=== PATIENT | male | born 1995 | race Caucasian/White ===

== ENCOUNTER 2022-03-05 14:54 | Emergency (ER) | payer OTHER, BC, SELFPAY ==
[2022-03-05 14:55] VITALS: BP 134/77; PULSE 68; RESP 14; TEMP 36.1; BMI 29.7
--- NOTE | 2022-03-05 15:25 | EX.ED.UPPERE ---
HPI History of Present Illness HPI Narrative: Patient presents with left wrist injury that occurred 1 week ago. Patient states he was using his hand to try to open a window out on a machine at work. Patient states he felt something pop at the time. Patient states he has been using it, thinking it was just a bruise and it would get better. Patient states it has not gotten any better over the last week. Patient describes his pain as aching. Patient states it is worse in the morning. Patient states it is worse whenever he pushes on the area. Patient states it is also worse whenever he makes a fist. Patient states ibuprofen has been helping. Patient denies any paresthesias or weakness. Patient denies any other injuries. Chief Complaint: Upper Extremity Injury Informant: patient Onset/Context/Timing Onset: Weeks (1) Context: Sudden Onset Timing: Continuous Quality of Pain: Aching Location: Volar aspect left wrist Worsened by: Pressure, making a fist Relieved by: Ibuprofen Associated Symptoms Associated Symptoms: Negative for Parasthesia, Weakness and Loss of Funtion PFSH PFSH Medical History no medical history no medical history Home Medications oxycodone-acetaminophen 1 - 2 tab PO Q4H PRN PRN #20 tab 12/03/13 [Rx Last Taken Unknown] Allergy/AdvReac Type Severity Reaction Status Date / Time No Known Allergies Allergy Verified 03/05/22 14:55 Surgical History History of open reduction and internal fixation (ORIF) procedure Social History Smoking Status: Never smoker ROS ROS ED Constitutional Constitutional ED: Denies chills or fever(s) Eyes Eyes: Denies blurry vision or change in vision ENT ENT ED: Reports rhinorrhea; Denies sore throat Cardiovascular Cardiovascular: Denies chest pain or palpitations Respiratory/Chest Respiratory/Chest: Denies cough or dyspnea Gastrointestinal Gastrointestinal: Denies nausea or vomiting Genitourinary Genitourinary ED: Denies dysuria or hematuria Musculoskeletal Musculoskeletal: Denies back pain or neck pain Integumentary Denies abscess or rash Neurologic Neurologic: Denies headache(s) or weakness Allergic/Immunologic Allergic/Immunologic ED: Denies mouth swelling or urticaria EXAM Physical Exam Const Vital Signs: 03/05/22 14:55 Temperature 97 F L Temperature Source Temporal Pulse Rate 68 Respiratory Rate 14 Blood Pressure 134/77 H Blood Pressure Mean 96 Positive well nourished and well developed General Appearance ED: well developed and NAD HEENT Reports moist mucous membranes Neck full ROM and supple Extremity Extremity Narrative: There is tenderness over the volar aspect of the left wrist and thenar eminence. There is no edema or ecchymosis. There is no bony crepitance or step-off. Range of motion was slightly limited in all motions of the left wrist secondary to pain. There is no tenderness over the anatomic snuffbox. Sensation was intact to light touch in the radial, median, and ulnar areas. Radial pulses are equal bilaterally. Strength is 5/5 in the radial, median, and ulnar areas. Neuro oriented x3, CN's II-XII intact bilaterally, moves all extremities, no focal motor deficits and no sensory deficits noted Sensorium / Orientation: alert Motor Exam: strength 5/5 throughout Psych mental status grossly normal Skin Lesions: no lesions Rashes: no rashes MDM MDM MDM Narrative Medical decision making narrative: X-rays of the left wrist were obtained. There are 3 views. On my interpretation, there is no acute fracture. There is no dislocation. There is no soft tissue swelling. Radiologist also interpreted the x-rays and agrees. Patient was advised of his findings. Patient was given a Velcro wrist splint. Patient was instructed to ice and elevate the left wrist. Patient was instructed to follow-up with his primary care physician or the now clinic in 5 to 7 days. Patient understood and was agreeable with the plan. All questions were answered. Discharge Plan Triage Chief Complaint: Upper Extremity Injury ED Provider: Marbin Clark Dx/Rx/DC Orders Clinical Impression: Contusion of left wrist, initial encounter Instructions: ED Contusion, Upper Extremity Prescriptions: No Action oxycodone-acetaminophen 1 TABLET tablet 1 - 2 tab PO Q4H PRN PRN (Reason: Pain) Qty: 20 RF: 0 Primary Care Provider: Mac Roy Referrals: Mac Roy MD [Primary Care Provider] - 5-7 Days Clinic[facility] [NON-STAFF] - 5-7 Days Disposition Disposition: Home, Self Care
--- NOTE | 2022-03-05 16:00 | RAD_ITS ---
EXAM: XR LEFT WRIST COMPLETE, 3 OR MORE VIEWS CLINICAL INDICATION: Injury/Pain TECHNIQUE: Frontal, lateral and oblique views of the left wrist. This report was created using Page[employer] report generation technology. COMPARISON: None. FINDINGS: BONES/JOINTS: Unremarkable. No acute fracture. No subluxation. Normal alignment. Preservation of the joint space. No sclerotic or destructive changes observed. SOFT TISSUES: Unremarkable. No soft tissue swelling or gas. No radiopaque foreign body. RAD/Wrist min 3 Views IMPRESSION: No acute abnormality. Electronically Signed: Timothy Kenny MD at 16:33 EDT ,
== END 2022-03-05 17:22 | disposition home or self-care (01) ==
PROVIDERS: Emergency Provider Emergency Medicine; PCP Family Medicine; Visit Provider Emergency Medicine
DX: S60.212A Contusion of left wrist, initial encounter (principal); X58.XXXA Exposure to other specified factors, initial encounter
CPT/HCPCS: 73110; 99283

== ENCOUNTER 2023-09-23 14:24 | Observation (INO) | payer BC, OTHER, SELFPAY ==
[2023-09-23] VITALS (11 sets, daily range): BP systolic 121–153; BP diastolic 77–99; PULSE 56–72; RESP 16–18; TEMP 36.3–37; O2SAT 95–100; BMI 30.9; BMI 31.4
--- NOTE | 2023-09-23 15:39 | CT_ITS ---
STUDY: CT ABDOMEN AND PELVIS WITH CONTRAST REASON FOR EXAM: Male, 28 years old. RLQ pain RADIATION DOSAGE (If Supplied By Facility): CTDIvol = ( 16.33 ) mGy, DLP = ( 1049.80 ) mGycm TECHNIQUE: Transaxial images were obtained from the dome of the diaphragm to the symphysis pubis without oral contrast. IV 100mL Isovue-300 was administered. Sagittal and coronal images were reconstructed. Individualized dose optimization techniques were used for this CT. COMPARISON: None. FINDINGS: The visualized lung bases are unremarkable. The visualized portions of the heart are within normal limits. Fatty liver. Normal gallbladder and extrahepatic biliary system. Normal spleen. Normal pancreas. Normal bilateral adrenal glands. Normal right kidney. Normal left kidney. Normal visualized stomach. Normal small intestine. There is a focal mesenteric inflammation which is between the mid sigmoid colon and the tip of the appendix. This may be related to focal diverticulitis or appendicitis. Normal abdominal aorta. Normal inferior vena cava. Normal retroperitoneum. Normal urinary bladder. Small fatty umbilical hernia. Normal osseous structures. CT/Abdomen/Pelvis W IV Cont ONLY IMPRESSION: There is a focal mesenteric inflammation which is between the mid sigmoid colon and the tip of the appendix. This may be related to focal diverticulitis or appendicitis. Small fatty umbilical hernia. Fatty liver. Electronically Signed: Derrek Adkins DO at 16:38 EST ,
--- NOTE | 2023-09-23 15:40 | ED.VIS.GI ---
HPI <WALT Ram - Last Filed: 09/23/23 18:47> HPI - GI History of Present Illness Chief Complaint: Abd Pain Narrative Narrative: Patient presenting today due to right lower quadrant abdominal pain that he has had constantly since late Friday night. He reports that his symptoms worsened on Friday. He reports that he has a constant dull cramping and aching sensation. He reports that the pain radiates to his umbilicus. Today he noticed around 6 episodes of loose stool. He went to urgent care prior to coming here and they encouraged him to come to the ED to rule out appendicitis. He denies any history of abdominal surgeries. He denies fever, chills, nausea, vomiting, melena/medic easier, and urinary symptoms. He does not have any history of kidney stones. He denies a PMH of any chronic health conditions. PFSH <WALT Ram - Last Filed: 09/23/23 18:47> PFSH Home Medications oxycodone-acetaminophen 5 mg-325 mg tablet 1 - 2 tab PO Q6H PRN pain 3 days #14 tabs 09/23/23 [Rx Last Taken Unknown] Allergy/AdvReac Type Severity Reaction Status Date / Time No Known Allergies Allergy Verified 09/23/23 14:25 Surgical History History of open reduction and internal fixation (ORIF) procedure Social History Smoking Status: Former smoker ROS <WALT Ram - Last Filed: 09/23/23 18:47> ROS ED Constitutional Constitutional ED: Denies chills or fever(s) Cardiovascular Cardiovascular: Denies chest pain Respiratory/Chest Respiratory/Chest: Denies cough or dyspnea Gastrointestinal Gastrointestinal: Reports abdominal pain and diarrhea; Denies constipation, nausea or vomiting Genitourinary Genitourinary ED: Denies dysuria, hematuria or urinary frequency Musculoskeletal Musculoskeletal: Denies arthralgias or myalgias Integumentary Denies rash Neurologic Neurologic: Denies weakness EXAM <WALT Ram - Last Filed: 09/23/23 18:47> Physical Exam Const Vital Signs: 09/23/23 14:26 09/23/23 17:28 09/23/23 17:56 Temperature 97.8 F 97.7 F L 97.7 F L Temperature Source Temporal Oral Pulse Rate 68 72 72 Respiratory Rate 18 18 18 Blood Pressure 134/89 H 152/99 H 152/99 H Blood Pressure Mean 104 116 116 Blood Pressure Source Monitor Blood Pressure Position Semi-Fowlers Blood Pressure Location Right Arm Pulse Ox 100 100 100 Oxygen Delivery Method Room Air Room Air Positive well nourished, well developed and no apparent distress General Appearance ED: well developed HEENT Reports normocephalic and head/scalp atraumatic Mouth ED: Yes moist mucous membranes normal Eyes PERRL and EOMs intact bilaterally Neck full ROM and supple Chest Wall inspection of chest normal Resp normal respiratory effort and clear to auscultation bilaterally Cardio regular rate and regular rhythm GI soft to palpation, non-distended and no masses GI Narrative: Slight tenderness to McBurney's point without any rigidity, guarding, or peritoneal signs. Negative Rovsing sign. Back/Spine normal ROM and normal to inspection Extremity normal to inspection and full ROM Neuro oriented x3, CN's II-XII intact bilaterally, moves all extremities, no focal motor deficits and no sensory deficits noted Sensorium / Orientation: awake and alert Psych mental status grossly normal and thought process normal Skin no rashes or lesions noted and no wounds <Dr. James Enamorado DO - Last Filed: 09/23/23 19:02> Physical Exam Const Vital Signs: 09/23/23 14:26 09/23/23 17:28 09/23/23 17:56 Temperature 97.8 F 97.7 F L 97.7 F L Temperature Source Temporal Oral Pulse Rate 68 72 72 Respiratory Rate 18 18 18 Blood Pressure 134/89 H 152/99 H 152/99 H Blood Pressure Mean 104 116 116 Blood Pressure Source Monitor Blood Pressure Position Semi-Fowlers Blood Pressure Location Right Arm Pulse Ox 100 100 100 Oxygen Delivery Method Room Air Room Air [facility] <WALT Ram - Last Filed: 09/23/23 18:47> [facility] Narrative Medical decision making narrative: Patient presenting today due to right lower quadrant abdominal pain that radiates to his umbilicus that started late Friday night. He reports that the pain was at its worst on Friday. Today he began having loose stool and had about 6 episodes of diarrhea. He does have slight tenderness to McBurney's point. CT of the abdomen and pelvis will be obtained to rule out appendicitis, diverticulitis, kidney stone, bowel obstruction, and other etiology. Labs will be obtained and he will be given IV fluids. I did offer analgesia but he declines. Labs overall are unremarkable. CT shows diverticulitis versus appendicitis. I did discuss these findings with the radiologist, he reports that he also does see a appendicolith but also mild diverticuli. Dr. Blevins was consulted and feels that this favors appendicitis but the only way to know for sure would be surgical intervention. Patient will be taken to the OR in stable condition and is comfortable with plan. Lab Data Attestation: I reviewed the patient's lab results. Labs: Laboratory Results - last 24 hr 09/23/23 09/23/23 15:40 16:15 WBC 5.4 RBC 4.74 Hgb 14.9 Hct 44.0 MCV 92.8 MCH 31.4 MCHC 33.9 RDW Std Deviation 42.5 RDW Coeff of [place] 12.3 Plt Count 194 MPV 10.0 Immature Gran % (Auto) 0.200 Neut % (Auto) 49.9 Lymph % (Auto) 35.7 [place] % (Auto) 9.8 Eos % (Auto) 3.7 Baso % (Auto) 0.7 Absolute Neuts (auto) 2.7 Absolute Lymphs (auto) 1.93 Nucleated RBC % 0 Sodium 139 Potassium 3.6 Chloride 106 Carbon Dioxide 31.0 Anion Gap 2 L BUN 15 Creatinine 1.18 Estim Creat Clear Calc 97.49 Est GFR (MDRD) Af Amer 93 Est GFR (MDRD) Non-Af 77 BUN/Creatinine Ratio 12.7 Glucose 96 Calcium 9.2 Total Bilirubin 1.40 H Direct Bilirubin 0.23 AST 27 ALT 53 Alkaline Phosphatase 71 Total Protein 6.8 Albumin 4.0 Globulin 2.8 Albumin/Globulin Ratio 1.4 Lipase 35 Urine Color Yellow Urine Clarity Clear Urine pH 6.5 Ur Specific [place] 1.010 Urine Protein Negative Urine Glucose (UA) Normal Urine Ketones Negative Urine Occult Blood Negative Urine Nitrite Negative Urine Bilirubin Negative Urine Urobilinogen Normal Ur Leukocyte Esterase Negative Urine RBC 0 SEEN Urine WBC 0 SEEN Ur Squamous Epith Cells 0 SEEN Urine Bacteria 0 SEEN Urine Mucus 0 SEEN Radiography Diagnostic Testing: Clinical Impression(s) from Imaging Studies Abdomen/Pelvis CT 09/23/23 15:39 IMPRESSION: There is a focal mesenteric inflammation which is between the mid sigmoid colon and the tip of the appendix. This may be related to focal diverticulitis or appendicitis. Small fatty umbilical hernia. Fatty liver. Electronically Signed: Derrek Adkins DO at 16:38 EST Reading Location ID and State: [facility] / [place] Tel [phone], Service support , ADDENDUM: 09/23/23 1720 IMPRESSION: undefined <Dr. James Enamorado DO - Last Filed: 09/23/23 19:02> [facility] Narrative Medical decision making narrative: Patient presenting today due to right lower quadrant abdominal pain that radiates to his umbilicus that started late Friday night. He reports that the pain was at its worst on Friday. Today he began having loose stool and had about 6 episodes of diarrhea. He does have slight tenderness to McBurney's point. CT of the abdomen and pelvis will be obtained to rule out appendicitis, diverticulitis, kidney stone, bowel obstruction, and other etiology. Labs will be obtained and he will be given IV fluids. I did offer analgesia but he declines. Labs overall are unremarkable. CT shows diverticulitis versus appendicitis. I did discuss these findings with the radiologist, he reports that he also does see a appendicolith but also mild diverticuli. Dr. Mcqueen was consulted and feels that this favors appendicitis but the only way to know for sure would be surgical intervention. Patient will be taken to the OR in stable condition and is comfortable with plan. This patient was seen with a PA/IN SERVICE EDUCATOR Individually assessed they patient including history and physical. I have reviewed everything on the chart that is available and agree with the documentation provided by the PA/IN SERVICE EDUCATOR including discussion about the assessment, treatment plan, discussion, and return precautions. 28-year-old male with right lower quadrant pain x 3 days. He is having diarrhea as well. Lab work today was normal however CT was interpreted as appendicitis versus diverticulitis. General surgery was consulted who recommended appendectomy. Patient counseled on this. He was given Zosyn. Vital signs are stable he is afebrile. Admitted in stable condition. Impression: Sign 1 acute appendicitis 2 diarrhea Lab Data Labs: Laboratory Results - last 24 hr 09/23/23 09/23/23 15:40 16:15 WBC 5.4 RBC 4.74 Hgb 14.9 Hct 44.0 MCV 92.8 MCH 31.4 MCHC 33.9 RDW Std Deviation 42.5 RDW Coeff of [place] 12.3 Plt Count 194 MPV 10.0 Immature Gran % (Auto) 0.200 Neut % (Auto) 49.9 Lymph % (Auto) 35.7 [place] % (Auto) 9.8 Eos % (Auto) 3.7 Baso % (Auto) 0.7 Absolute Neuts (auto) 2.7 Absolute Lymphs (auto) 1.93 Nucleated RBC % 0 Sodium 139 Potassium 3.6 Chloride 106 Carbon Dioxide 31.0 Anion Gap 2 L BUN 15 Creatinine 1.18 Estim Creat Clear Calc 97.49 Est GFR (MDRD) Af Amer 93 Est GFR (MDRD) Non-Af 77 BUN/Creatinine Ratio 12.7 Glucose 96 Calcium 9.2 Total Bilirubin 1.40 H Direct Bilirubin 0.23 AST 27 ALT 53 Alkaline Phosphatase 71 Total Protein 6.8 Albumin 4.0 Globulin 2.8 Albumin/Globulin Ratio 1.4 Lipase 35 Urine Color Yellow Urine Clarity Clear Urine pH 6.5 Ur Specific [place] 1.010 Urine Protein Negative Urine Glucose (UA) Normal Urine Ketones Negative Urine Occult Blood Negative Urine Nitrite Negative Urine Bilirubin Negative Urine Urobilinogen Normal Ur Leukocyte Esterase Negative Urine RBC 0 SEEN Urine WBC 0 SEEN Ur Squamous Epith Cells 0 SEEN Urine Bacteria 0 SEEN Urine Mucus 0 SEEN Radiography Diagnostic Testing: Clinical Impression(s) from Imaging Studies Abdomen/Pelvis CT 09/23/23 15:39 IMPRESSION: There is a focal mesenteric inflammation which is between the mid sigmoid colon and the tip of the appendix. This may be related to focal diverticulitis or appendicitis. Small fatty umbilical hernia. Fatty liver. Electronically Signed: Derrek Adkins DO at 16:38 EST Reading Location ID and State: [facility] / [place] Tel [phone], Service support , ADDENDUM: 09/23/23 4341 IMPRESSION: undefined Discharge Plan Dx/Rx/DC Orders Clinical Impression: RLQ abdominal pain, Diarrhea, Acute appendicitis Disposition Disposition: Acute Care Hospital [facility] Discharge Date/Time: 09/23/23 18:10
[2023-09-23] MEDS: 0.9% Normal Saline (1000mL) 1,000 ML 999 ML IV (15:49)
[2023-09-23 16:03] LABS: Absolute Lymphocyte Count 1.93 X10^3/uL (0.83-4.51); Absolute Neutrophil Count 2.7 X10^3/uL (2.0-7.7); Basophil# 0.04 X10^3/uL; Basophil% 0.7 % (0-1); Eosinophils% 3.7 % (0-5); Hemoglobin 14.9 g/dL (13.0-16.5); Lymphocyte # 1.93 X10^3/ul (0.83-4.51); Lymphocyte % 35.7 % (19-41); Mean Corp Hgb Conc 33.9 g/dL (32-36); Mean Corpuscular Hgb 31.4 pg (27.0-32.0); Mean Corpuscular Volume 92.8 fL (80-94); Monocyte# 0.53 X10^3/uL; Monocyte% 9.8 % (0-10); NRBC Flagged by Analyzer 0 % (0-5); Neutrophil # 2.69 X10^3/uL (2.7-7.7); Neutrophil % 49.9 % (47-70); Platelet Count 194 K/mm3 (150-450); RBC Distribution Width CV 12.3 % (11.6-14.6); RBC Distribution Width SD 42.5 fl (35.1-43.9); Red Blood Count 4.74 M/mm3 (4.6-6.2); White Blood Count 5.4 K/mm3 (4.4-11.0)
[2023-09-23 16:13] LABS: ALB/GLOB Ratio 1.4 RATIO (0.9-2.4); AST(SGOT) 27 U/L (15-37); Alanine Aminotransfer ALT/SGPT 53 U/L (16-61); Alkaline Phosphatase 71 U/L (45-117); Anion Gap 2 (5-15); BUN 15 mg/dL (7-18); BUN/Creat Ratio 12.7 RATIO (10-20); Calcium,Total 9.2 mg/dL (8.5-10.1); Chloride 106 mmol/L (98-107); Creatinine, Serum 1.18 mg/dL (0.70-1.30); EST Glomerular Filtration Rate 77 mL/min (>60); Est Glom Filt Rate - Afr Amer 93 mL/min (>60); Estimated Creatinine Clearance 97.49 ml/min; Globulin 2.8 g/dL (2.2-4.2); Glucose 96 mg/dL (74-106); Lipase 35 U/L (13-75); Potassium 3.6 mmol/L (3.5-5.1); Protein, Total 6.8 g/dL (6.4-8.2); Sodium Level 139 mmol/L (136-145)
[2023-09-23 16:24] LABS: Bacteria 0 SEEN /hpf (None Seen); Mucous, Urine 0 SEEN /hpf (<or=2+); Red Blood Cells-Urine 0 SEEN /hpf (0-5); Squamous Epithelial Cells - UA 0 SEEN /hpf (0-5); White Blood Cells 0 SEEN /hpf (0-5)
[2023-09-23 16:27] LABS: Color, Urine Yellow (Yellow); Glucose, Dipstick Normal (Normal); Ketone-Dipstick Negative (Negative); Leukocyte Esterase-Dipstick Negative /ul (Negative); Nitrite-Dipstick Negative (Negative); Occult Blood-Urine Negative /ul (Negative); Protein-Dipstick Negative (Negative); Urine Bilirubin Dipstick Negative (Negative); Urine Clarity Clear (Clear); Urine Urobilinogen Normal (Normal); Urine pH 6.5 (5.0 - 8.0)
--- NOTE | 2023-09-23 17:15 | PCM.HP.STD ---
HPI - General General Date of Admission: 09/23/23 HPI Narrative JOSIE AGUIRRE, is a 28 M who presents right lower quadrant abdominal pain starting on Friday. Patient continued to have the discomfort and also had 6 episodes of diarrhea today. Patient was seen in urgent care and had pain in the right lower quadrant when pressed on the left lower quadrant. Patient was sent to the ER for CAT scan. CT abdomen pelvis showed focal inflammation between the tip of the appendix and the sigmoid colon question appendicitis versus diverticulitis. When questioning the radiologist there is an appendicolith at the tip of the appendix as well. Patient denies any nausea or vomiting today and was able to eat normally yesterday. Patient has normal white blood count no shift. PFSH Home Medications oxycodone-acetaminophen 5 mg-325 mg tablet 1 - 2 tab PO Q4H PRN PRN Pain #20 tabs 12/03/13 [Rx Last Taken Unknown] Allergy/AdvReac Type Severity Reaction Status Date / Time No Known Allergies Allergy Verified 09/23/23 14:25 Surgical History History of open reduction and internal fixation (ORIF) procedure Social History Smoking Status: Former smoker Vital Signs Vital Signs Vital Signs: 09/23/23 14:26 Temperature 97.8 F Temperature Source Temporal Pulse Rate 68 Respiratory Rate 18 Blood Pressure 134/89 H Blood Pressure Mean 104 Pulse Ox 100 Oxygen Delivery Method Room Air Weight Weight: 221 lb 14.4 oz Body Mass Index (BMI) 30.9 Physical Exam Const alert, oriented x3 and no apparent distress HEENT normocephalic and head/scalp atraumatic Resp normal respiratory effort Cardio regular rate GI soft to palpation; Negative for non-distended Palpation: tender RLQ; Negative for guarding Extremity no clubbing, cyanosis or edema Neuro CN's II-XII intact bilaterally Psych mental status grossly normal Results Lab / Micro Data 09/23/23 15:40 09/23/23 15:40 Labs: Laboratory Results - last 24 hr 09/23/23 15:40: WBC 5.4, RBC 4.74, Hgb 14.9, Hct 44.0, MCV 92.8, MCH 31.4, MCHC 33.9, RDW Std Deviation 42.5, RDW Coeff of [place] 12.3, Plt Count 194, MPV 10.0, Immature Gran % (Auto) 0.200, Neut % (Auto) 49.9, Lymph % (Auto) 35.7, [place] % (Auto) 9.8, Eos % (Auto) 3.7, Baso % (Auto) 0.7, Absolute Neuts (auto) 2.7, Absolute Lymphs (auto) 1.93, Nucleated RBC % 0, Sodium 139, Potassium 3.6, Chloride 106, Carbon Dioxide 31.0, Anion Gap 2 L, BUN 15, Creatinine 1.18, Estim Creat Clear Calc 97.49, Est GFR (MDRD) Af Amer 93, Est GFR (MDRD) Non-Af 77, BUN/Creatinine Ratio 12.7, Glucose 96, Calcium 9.2, Total Bilirubin 1.40 H, AST 27, ALT 53, Alkaline Phosphatase 71, Total Protein 6.8, Albumin 4.0, Globulin 2.8, Albumin/Globulin Ratio 1.4, Lipase 35 09/23/23 16:15: Urine Color Yellow, Urine Clarity Clear, Urine pH 6.5, Ur Specific [place] 1.010, Urine Protein Negative, Urine Glucose (UA) Normal, Urine Ketones Negative, Urine Occult Blood Negative, Urine Nitrite Negative, Urine Bilirubin Negative, Urine Urobilinogen Normal, Ur Leukocyte Esterase Negative, Urine RBC 0 SEEN, Urine WBC 0 SEEN, Ur Squamous Epith Cells 0 SEEN, Urine Bacteria 0 SEEN, Urine Mucus 0 SEEN Imagaing Radiology Impression Abdomen/Pelvis CT 09/23/23 15:39 IMPRESSION: There is a focal mesenteric inflammation which is between the mid sigmoid colon and the tip of the appendix. This may be related to focal diverticulitis or appendicitis. Small fatty umbilical hernia. Fatty liver. Electronically Signed: Derrek Adkins DO at 16:38 EST Reading Location ID and State: [facility] / [place] Tel [phone], Service support , Assessment & Plan Assessment/Plan (1) RLQ abdominal pain: (2) Acute appendicitis: (3) Diarrhea: PLAN: Plan Did review patient's CT with the patient. Patient does have focal inflammation near the tip of the appendix in the sigmoid colon as they are adjacent to each other. Patient does have mild symptoms however the appendicolith is at the tip of the appendix and the inflammation appears to only be on 1 side of the colon which may favor appendicitis more than diverticulitis. Discussed with patient the only way to know for sure would be to remove the appendix even if it was normal- I would plan to remove it during the laparoscopic appendectomy. If it appeared completely normal would treat with antibiotics for the diverticulitis. Patient's questions were answered. Patient agreed with plan. 1. Discussed procedure laparoscopic appendectomy, possible open along with the risk but not limited to bleeding, infection/abscess, injury to another organ (small bowel, colon, etc.), adhesion, hernia at incision sites, and anesthesia. Patient no further question this time. China Harrison M.D. Pager: [phone] [facility] [address] [place] [address], [address] [place] [id number] Office: [phone]
[2023-09-23] MEDS: Piperacil/Tazobactam 3.375 GM in 0.9% Normal Saline (50mL MB+) 50 ML IV (17:27)
[2023-09-23 18:25] LABS: Bilirubin, Direct 0.23 mg/dL (0.00-0.30)
--- OUTSIDE RECORDS SUMMARY | 2023-09-23 18:30 | XMS RPT_ITS | CCD ---
Author Name Unknown Address [address] [place] [address] Organization [facility] Care Team Providers Care Director Of Student Affairs Name Role Phone FARNAZ GARCÍA Unavailable Unavailable FARNAZ GARCÍA Unavailable Unavailable DEREJE GARCÍA Unavailable Unavailable DEREJE GARCÍA Unavailable Unavailable NO REFERRING DR Unavailable Unavailable Problems Active Problems Problem Classification Problem Date Documented Da te Episodic/Chronic Unclassified (1 source) Unknown / UNK(Unknown) Onset: 06-15-2017 Past or Other Problems Problem Classification Problem Date Documented Da te Episodic/Chronic Unclassified (1 source) LEFT FOOT INJURY Onset: 06-15-2017 Results Test Name Value Interpretation Reference Range Facil ity Encounters Encounter Date Encounter Type Care Provider Facility Start: 06-15-2017 End: 06-15-2017 Ambulatory FARNAZ GARCÍA [facility] Start: 06-15-2017 End: 06-15-2017 Emergency department patient visit DEREJE RAQUEL Facility:[facility] Payers Date Payer Category Payer Policy ID Unknown [id number] Progress note 11-03-2020 Note Date & Type Note Facility 11-03-2020 Note HNO ID: [id number] Author: Sergio (Tray) Merlene Service: ? Author Type: Nurse Practitioner Type: Progress Notes Filed: 11/03/2020 6:22 PM Note Text: Subjective HPI Nontoxic-appearing male presents urgent care chief complaint COVID-19 concerns. Duration of symptoms 2 days. Associated symptoms nasal congestion, chills sore throat cough. Patient states he has been fatigued however he has been working 11-hour days. Patient states few colleagues have been diagnosed with COVID-19 in the past 2 weeks. Denies any OTC medication use. Denies any pain. Denies any fevers, nausea, vomiting, chest pain, shortness of breath, headache, pleuritic pain visual changes or change in bowel or bladder habits. Denies any past medical history prescription medication use or medical allergies. .Patient presents with: Nasal Congestion: drainage, chills, sore throat and cough x 2 days History reviewed. No pertinent past medical history. PAST SURGICAL HISTORY Procedure Laterality Date - PAST SURGICAL HISTORY OF Left 2013 [facility] injury, ligament reconstruction of hand - REMOVAL ADENOIDS,PRIMARY,<12 Y/O Adenoidectomy - REMOVAL OF TONSILS,<10 Y/O 1995 Tonsillectomy ALLERGIES Seasonal Allergies MEDICATIONS ibuprofen (MOTRIN) 200 mg tablet Take 800 mg by mouth every 8 hours as needed for Pain. History reviewed. No pertinent family history. Social History Tobacco Use - Smoking status: Never Smoker - Smokeless tobacco: Never Used Substance Use Topics - Alcohol use: Yes Comment: one beer per month - Drug use: No BP 106/64 Pulse 76 Temp 36.6 ?C (97.8 ?F) (Tympanic) Resp 16 Wt 94.3 kg (208 lb) SpO2 97% BMI 29.01 kg/m? Review of Systems Constitutional: Positive for chills. Negative for fever and malaise/fatigue. HENT: Positive for congestion and sore throat. Negative for ear discharge, ear pain and sinus pain. Eyes: Negative for blurred vision, pain, discharge and redness. Respiratory: Positive for cough. Negative for hemoptysis, sputum production, shortness of breath and wheezing. Cardiovascular: Negative for chest pain. Gastrointestinal: Positive for nausea. Negative for abdominal pain, constipation, diarrhea and vomiting. Genitourinary: Negative. Musculoskeletal: Positive for myalgias. Neurological: Negative for dizziness and headaches. Objective Physical Exam Constitutional: He is oriented to person, place, and time and well-developed, well-nourished, and in no distress. No distress. HENT: Right Ear: Hearing and external ear normal. No drainage, swelling or tenderness. No mastoid tenderness. Left Ear: Hearing and external ear normal. No drainage, swelling or tenderness. No mastoid tenderness. Mouth/Throat: Uvula is midline, oropharynx is clear and moist and mucous membranes are normal. No uvula swelling. No oropharyngeal exudate, posterior oropharyngeal edema, posterior oropharyngeal erythema or tonsillar abscesses. Eyes: Pupils are equal, round, and reactive to light. Conjunctivae are normal. Cardiovascular: Normal rate and regular rhythm. Pulmonary/Chest: Effort normal and breath sounds normal. No accessory muscle usage. No tachypnea. No respiratory distress. Abdominal: Soft. There is no abdominal tenderness. Musculoskeletal: Cervical back: Normal range of motion and neck supple. Lymphadenopathy: He has no cervical adenopathy. Neurological: He is alert and oriented to person, place, and time. Gait normal. Skin: Skin is warm and dry. He is not diaphoretic. ASSESSMENT/PLAN: 1. Suspected COVID-19 virus infection - ICD9: V01.79, ICD10: Z20.822 - 2019 CORONAVIRUS COVID-19 test ordered. Alternative diagnosis discussed. Work note provided. Home quarantine recommended. Patient was educated on supportive therapies. Patient will follow up with primary care provider as needed. Patient was instructed to immediately proceed to emergency room for any new, worsening, or symptoms lasting longer than anticipated. The patient's clinical presentation is otherwise unremarkable at this time. Based on exam and clinical finding, the patient is stable for discharge. Plan of care was discussed with patient. Patient verbalizes understanding and agrees to plan of care. This note was generated using [employer] software. It may contain errors in wording, punctuation, or spelling. Sergio Blunt APRN.[facility] Summary Purpose Family History No Family History Records FoundNo Family History Records FoundNo Family History Records Found Advance Directives No Advanced Directives Records FoundNo Advanced Directives Records FoundNo Advanced Directives Records Found Additional Source Comments (unrecognized sect ion and content) No Status Records FoundNo Status Records FoundNo Status Records Found INFORMATION SOURCE (unrecogn ized section and content) DATE CREATED AUTHOR AUTHOR'S ORGANIZ ATION 03/20/2018 [facility] DATE CREATED AUTHOR AUTHOR'S ORGANIZ ATION 10/21/2021 [facility] FOR RECORDS PERTAINING TO PATIENTS WHO ARE OR HAVE BEEN ENROLLED IN A CHEMICAL DEPENDENCY/SUBSTANCEABUSE PROGRAM, SOME INFORMATION MAY BE OMITTED. This clinical summary was aggregated from multiple sources. Caution should be exercised in using it in the provision of clinical care. This summary normalizes information from multiple sources, and as a consequence, information in this document may materially change the coding, format and clinical context of patient data. In addition, data may be omitted in some cases. CLINICAL DECISIONS SHOULD BE BASED ON THE PRIMARY CLINICAL RECORDS. [facility], [facility]. provides no warranty or guarantee of the accuracy or completeness of information in this document.
[2023-09-23] MEDS: Bupivacaine Mpf 0.5% 30 ML VIAL (19:02)
--- NOTE | 2023-09-23 19:10 | OP.PCM_ITS ---
Report of Operation Date of Procedure: 09/23/23 Pre-Operative Diagnosis: Acute appendicitis Post-Operative Diagnosis: Same Surgery/Procedure Performed:: Laparoscopic appendectomy Surgeon: China Harrison Type of Anesthesia: General/Supplemental Anesthesiologist: Marbin Lowery Special Medications: Zosyn 3.375 g IV x 1 Specimen's removed: Appendix Estimated Blood Loss (mL): 10 cc Description of Procedure: Indications: 28-year-old male presented to the ER with new right lower quadrant pain starting on Friday with some diarrhea. On workup he was found to have acute appendicitis on CT and a white blood count within normal limits with no shift. Patient was started on antibiotics in the ER for acute appendicitis- Zosyn 3.375 g IV x 1 Description of the procedure: The patient was placed on operating table in supine position. General anesthesia was induced. A timeout was completed verifying correct patient, procedure, position and special equipment prior to beginning procedure. Abdomen was prepped and draped in usual sterile fashion. Incision was made in the natural skin line above the umbilicus with a 15 blade scalpel. The fascia was elevated and incised. Entry into the peritoneum was confirmed visually and no bowel was noted in the vicinity of the incision. The Bradford trocar was placed under direct vision. Abdomen insufflated with a pressure of 12-15 mmHg. Patient tolerated insertion well. The scope was inserted and the abdomen inspected. No injuries from initial trocar placement were noted. Minimal amount of fluid was seen in the right lower quadrant. An direct visualization 2 -5 mm trocars were placed one above the symphysis pubis and below the hairline and one in the left lower quadrant lateral to the rectus muscle. Care is taken to avoid injury to the bladder and inferior epigastric vessels. The table was placed in Trendelenburg position with the right side elevated. The appendix was grasped with atraumatic grasper and elevated. It was noted to be inflamed at the tip sitting adjacent to the sigmoid colon, remainder of the sigmoid colon appeared normal. A window was developed in the mesoappendix at the point between the base of the appendix and the cecum. An endoscopic 45 mm linear cutting stapler blue load was then used to divide and staple the base of the appendix. Enseal was used to divide the mesoappendix The appendix was withdrawn into the Bradford trocar after being placed endoscopically retrieval bag. Appendix was sent to pathology. The appendiceal stump was then irrigated and hemostasis was assured. Fluid was suctioned no other pathology was identified. Secondary trochars were removed under direct visualization. No bleeding was noted trocar sites. The laparoscope withdrawn and the umbilical trocar removed. The abdomen was allowed to collapse. Local anesthesia of 16 mL of 0.5% Marcaine was used at the incision sites. The umbilical trocar site was closed with the [id number] 0 Vicryl suture. The skin was closed using sutures of 4-0 Monocryl and Steri-Strips. The patient was extubated. The patient tolerated the procedure well and was taken to the postanesthesia care unit in satisfactory condition. Complications none
--- NOTE | 2023-09-23 19:12 | DCINST_ITS ---
Discharge Instructions Diet Discharge Diet: Light diet - advance as tolerated Activity Discharge Activity: May Not Drive (while taking narcotic pain medications.) May shower in (days): 1 Lifting Restrictions: no lifting >20 lbs x 2 wks, no strenuous exercise for 4 wks Dressing / Incision Call your doctor if your incision/area has: Continuous Slow Oozing, Sudden Increased Bleeding, Increased Pain/ Swelling, Increased Redness, Foul Smelling Discharge and Swelling at the incision site Call your doctor if you observe: Fever of 101 or Higher Remove Dressing in: 2 days Cleanse incision/area with: Soap & Water Additional Dressing/Incision Instructions:: Steri-Strips will fall off in 7 to 10 days, if they do not fall off okay to remove after 10 days. Follow Up Care Please Follow Up With: China Harrison MD When: Call the office for a follow-up appointment 2 weeks; after 5 PM and on the weekends call [phone] with any concerns. Test Results: Test results from this visit will be discussed in further detail at your follow- up appointment, if applicable. Discharge Plan Admission Attending Provider: China Harrison Primary Care Provider: Mac Roy Discharge Orders/Prescriptions Prescriptions: New oxycodone-acetaminophen 5-325 mg tablet 1 - 2 tab PO Q6H PRN (Reason: pain) 3 Days Qty: 14 0RF Referrals / Follow Up: Mac Roy MD [Primary Care Provider] - Disposition Disposition (needs filled in before D/C Order can be placed): Home, Self Care
--- OUTSIDE RECORDS SUMMARY | 2023-09-23 20:10 | XMS RPT_ITS | CCD ---
Author Name Unknown Address [address] [place] [address] Organization [facility] Care Team Providers Care Publications Editor Name Role Phone FARNAZ GARCÍA Unavailable Unavailable [...] End: 06-15-2017 Ambulatory FARNAZ GARCÍA [facility] Start: 06-15-2017 End: 06-15-2017 Emergency department patient visit DEREJE RAQUEL Facility:[facility] Payers Date Payer Category Payer Policy ID Unknown [id number] Progress note 11-03-2020 Note Date & Type Note Facility 11-03-2020 Note HNO ID: [id number] Author: Sergio (Tray) Merlene Service: ? Author [...] - PAST SURGICAL HISTORY OF Left 2013 [facility] injury, ligament reconstruction of hand - REMOVAL [...] of care. This note was generated using [employer] software. It may contain errors in wording, punctuation, or spelling. Sergio Blunt APRN.[place] Summary Purpose Family History No Family History [...] DATE CREATED AUTHOR AUTHOR'S ORGANIZ ATION 03/20/2018 [facility] DATE CREATED AUTHOR AUTHOR'S ORGANIZ ATION 10/21/2021 [facility] FOR RECORDS PERTAINING TO PATIENTS WHO [...] BE BASED ON THE PRIMARY CLINICAL RECORDS. [facility], [facility]. provides no warranty or guarantee of the accuracy or completeness of information in this document.
[2023-09-23] MEDS: Acetaminophen 325 MG Tablet 650 MG PO (21:38)
[2023-09-23] MEDS: 0.9% Normal Saline (1000mL) 1,000 ML 120 ML IV (21:42)
[2023-09-23] MEDS: Ketorolac 15 MG/ML Vial IV (21:43)
--- NOTE | 2023-09-24 | APP_PTH ---
PATHOLOGY RESULTS PATIENT: JOSIE AGUIRRE LOC: MS3 U#:[id number] AGE/SX: 28/M ROOM: UT318 RE09/23/[address]: Dr. China Harrison MD : 1995 BED: 1 DIS: 09/24/2023 SPEC #: [id number] RECD: 09/24/23 12:28 STATUS: ELLE KYLEE #: [id number] SUE: 09/24/23 00:[address]: China Harrison DEPT: SURGICAL PATHOLOGY RECD BY: Polina Zavala ENTERED: 09/24/23 12:28 SP TYPE: APPENDIX OTHR DR: Dr. Surya Roy MD Tissues: Appendix, NOS Procedures: Surgery Specimen Level III HEADER OPERATION: Laparoscopic appendectomy PRE-OP DIAGNOSIS: RLQ abdominal pain, acute appendicitis, diarrhea TISSUE SUBMITTED: Appendix MICROSCOPIC DIAGNOSIS Appendix, appendectomy: Minimal acute appendicitis. Minimal periappendiceal reactive changes. See comment. SJ:pily 09/25/2023 COMMENT Minimal acute inflammation is noted in the lumen and the superficial mucosa. Entire appendix is examined. Clinical correlation and appropriate follow up are necessary. Case has been reviewed in consultation with Dr. Webster who concurs with the above diagnosis. IDC:AM MICROSCOPIC DESCRIPTION Slides are reviewed. GROSS DESCRIPTION Received in fixative is one container labeled with the patient's name and designated appendix. The specimen consists of an appendix measuring 6.0 cm in length and up to 0.7 cm in diameter. The attached periappendiceal adipose tissue measures up to 1.0 cm in width. The serosa is mildly congested. No obvious perforation is identified. The lumen contains hemorrhagic fecal material. No fecalith is identified. The entire appendix is submitted in three cassettes. Cassette 1 contains the tip and most proximal portion. / SJ:pily 09/24/2023 TC:2 CPT: 51401
[2023-09-24 00:40] VITALS: BP 113/68; PULSE 88; RESP 16; TEMP 37; O2SAT 98
[2023-09-24] MEDS: Acetaminophen 325 MG Tablet 650 MG PO (05:03)
[2023-09-24] MEDS: Ketorolac 15 MG/ML Vial IV (05:03)
[2023-09-24] MEDS: 0.9% Normal Saline (1000mL) 1,000 ML 120 ML IV (05:06)
[2023-09-24 05:08] VITALS: BP 117/69; PULSE 74; RESP 18; TEMP 36.5; O2SAT 100
[2023-09-24 08:10] VITALS: BP 110/73; PULSE 62; RESP 16; TEMP 36.6; O2SAT 96
--- NOTE | 2023-09-24 08:40 | PN.SURG_ITS ---
Subjective Subjective Patient tolerating diet, positive flatus, pain controlled Objective Data Objective Data Vital Signs: Vital Signs Temp Pulse Resp BP Pulse Ox O2 Del Method O2 Flow Rate 98 F 62 16 110/73 96 Room Air 8 09/24/23 08:10 09/24/23 08:10 09/24/23 08:10 09/24/23 08:10 09/24/23 08:10 09/24/23 08:10 09/23/23 19:27 Oxygen Flow Rate (L/min) 8 Oxygen Delivery Method Room Air Weight: 225 lb 1.6 oz Body Mass Index (BMI) 31.4 Intake & Output: Intake and Output for Last 24 Hours 09/22/23 09/23/23 09/24/23 23:59 23:59 23:59 Intake Total 3050 / 3050 1288 / 1288 Output Total 400 / 400 Balance 2650 / 2650 1288 / 1288 Lab / Micro Data 09/23/23 15:40 09/23/23 15:40 Labs: Laboratory Results - last 24 hr 09/23/23 15:40: WBC 5.4, RBC 4.74, Hgb 14.9, Hct 44.0, MCV 92.8, MCH 31.4, MCHC 33.9, RDW Std Deviation 42.5, RDW Coeff of Olena 12.3, Plt Count 194, MPV 10.0, Immature Gran % (Auto) 0.200, Neut % (Auto) 49.9, Lymph % (Auto) 35.7, Bulloch % (Auto) 9.8, Eos % (Auto) 3.7, Baso % (Auto) 0.7, Absolute Neuts (auto) 2.7, Abs olute Lymphs (auto) 1.93, Nucleated RBC % 0, Sodium 139, Potassium 3.6, Chloride 106, Carbon Dioxide 31.0, Anion Gap 2 L, BUN 15, Creatinine 1.18, Estim Creat Clear Calc 97.49, Est GFR (MDRD) Af Amer 93, Est GFR (MDRD) Non-Af 77, BUN/Creatinine Ratio 12.7, Glucose 96, Calcium 9.2, Total Bilirubin 1.40 H, Direct Bilirubin 0.23, AST 27, ALT 53, Alkaline Phosphatase 71, Total Protein 6.8, Albumin 4.0, Globulin 2.8, Albumin/Globulin Ratio 1.4, Lipase 35 09/23/23 16:15: Urine Color Yellow, Urine Clarity Clear, Urine pH 6.5, Ur Spe cific Etoile 1.010, Urine Protein Negative, Urine Glucose (UA) Normal, Urine Ketones Negative, Urine Occult Blood Negative, Urine Nitrite Negative, Urine Bilirubin Negative, Urine Urobilinogen Normal, Ur Leukocyte Esterase Negative, Urine RBC 0 SEEN, Urine WBC 0 SEEN, Ur Squamous Epith Cells 0 SEEN, Urine Bacteria 0 SEEN, Urine Mucus 0 SEEN Radiography Diagnostic Testing: Radiology Impression Abdomen/Pelvis CT 09/23/23 15:39 IMPRESSION: There is a focal mesenteric inflammation which is between the mid sigmoid colon and the tip of the appendix. This may be related to focal diverticulitis or appendicitis. Small fatty umbilical hernia. Fatty liver. Electronically Signed: Derrek Adkins DO at 16:38 EST Reading Location ID and State: [facility] / [place] Tel [phone], Service support , ADDENDUM: 09/23/23 1720 IMPRESSION: undefined Physical Exam Resp normal respiratory effort Cardio regular rate GI GI Narrative: Abdomen: Soft, nondistended, tender near incision's dressed clean dry and intact, no peritoneal signs Assessment & Plan Assessment/Plan (1) S/P laparoscopic appendectomy: PLAN: Plan Patient is doing well tolerating diet, pain controlled. Incisions healing well clean dry and intact/dressed. Okay to DC home patient tolerates his breakfast. Follow-up in 2 weeks. China Harrison M.D. Pager: [phone] [facility] [address] [place] [address], [address] [place] [address] Office: [phone]
== END 2023-09-24 10:42 | disposition home or self-care (01) ==
LOC: ED 17:08 → SDC 17:34 → ACINP 17:43 → SDC 20:07 → MS3 20:08
PROVIDERS: Admitting Provider Surgery; Emergency Provider Student in an Organized Health Care Education/Training Program; PCP Family Medicine; Visit Provider Surgery
PROC: 0DTJ4ZZ Resection of Appendix, Percutaneous Endoscopic Approach (ICD-10-PCS; CPT 44970; principal; 2023-09-23 15:25)
DX: K35.80 Unspecified acute appendicitis (principal); Z87.891 Personal history of nicotine dependence
CPT/HCPCS: 44970; 00840; 74177; 80053; 81001; 82248; 83690; 85025; 88304; 96361; 96365; 96366; 96375; 99221; 99283; J7030; Q9967; A4216; C1760; G0378; J2405